=== PATIENT | female | born 2000 | race Caucasian/White ===

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

== ENCOUNTER 2021-02-27 16:16 | Emergency (ER) | payer OTHER, MEDICAID ==
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
[2021-02-27 17:52] VITALS: BP 143/78; PULSE 99
== END 2021-02-27 17:38 | disposition home or self-care (01) ==
LOC: MW.ED 16:16
DX: M62.838 Other muscle spasm (principal); M54.6 Pain in thoracic spine; V89.2XXA Person injured in unspecified motor-vehicle accident, traffic, initial encounter
CPT/HCPCS: 72125; 72125-26; 72128; 72128-26; 99283; 99284-25

== ENCOUNTER 2025-02-02 19:17 | Emergency (ER) | payer OTHER ==
[2025-02-02] MEDS: Amoxicillin/Clavulanate K 875-125 MG Tab PO ONE (21:09)
[2025-02-02 21:14] VITALS: BP 135/74; PULSE 73
== END 2025-02-02 21:17 | disposition home or self-care (01) ==
LOC: MW.ED 19:17
DX: H66.002 Acute suppurative otitis media without spontaneous rupture of ear drum, left ear (principal); Z79.899 Other long term (current) drug therapy
CPT/HCPCS: 99282; A9270

== ENCOUNTER 2025-02-10 13:14 | Emergency (ER) | payer OTHER ==
[2025-02-10 13:54] VITALS: BP 111/59; PULSE 84
[2025-02-10] MEDS: Ketorolac 30 MG/ML SDV IM ONE (15:46)
[2025-02-10] MEDS: Orphenadrine 60 MG/2 ML Inj IM ONE (15:46)
[2025-02-10] MEDS: Lidocaine 4% Patch TOP STA (15:46)
== END 2025-02-10 17:06 | disposition home or self-care (01) ==
LOC: MW.ED 13:14
DX: M54.6 Pain in thoracic spine (principal); Z75.8 Other problems related to medical facilities and other health care; Z79.899 Other long term (current) drug therapy
CPT/HCPCS: 71046; 96372; 99283; A9270; J1885; J2360